=== PATIENT | female | born 1965 | race Caucasian/White ===

== ENCOUNTER 2025-07-16 07:17 | Day surgery (SDC) | payer MEDICARE, MEDICAID ==
[2025-07-14 10:24] LABS: MEAN PLATELET VOLUME 8.6 FL (7.4-10.4); RED CELL DISTRIBUTION WIDTH 13.6 % (11.5-14.5)
[2025-07-14 10:41] LABS: APTT 24 SECONDS (22-32); INR 1.0 INR
[2025-07-14 10:45] LABS: CHOL/HDL RATIO 2.3 (0.00-4.99); CREATININE 0.64 MG/DL (0.40-0.90); LDL CHOLESTEROL 62 MG/DL (50-100); TOTAL CARBON DIOXIDE 32.8 MMOL/L (24-32); eGFR > 90 ML/MIN
[2025-07-16] VITALS (9 sets, daily range): BP systolic 133–144; BP diastolic 51–64; PULSE 39–44; RESP 16; TEMP 97.4; O2SAT 96–99
[~2025-07-16] VITALS: Ht 162.6 cm; Wt 109.0 kg
[~2025-07-16 07:17] MED LIST: ASPI-1674 PO; ATOR-2 PO; BUPR150T8 PO; FLUT12AE4 INH; HYDR-3686 PO; LISI1TAB49 PO; MELO-100 PO; METO-395 PO; NICO-687 TOP; SERT-433 PO
--- NOTE | 2025-07-16 07:43 | ELECTROCARDIOGRAPH REPORT ---
[facility] Test Date: 2025-07-16 Test Time: 07:40:45 Pat Name: BECKIE LEAHY Department: [facility] Patient ID: [id number] Room: Gender: F Nicu Rn: mack : 1965 Requested By: JOHNNY ZAMORA Order Number: [id number] Reading MD: Dr. YESICA Turner Measurements Intervals [place] Rate: 42 P: -2 VA: 130 QRS: 7 QRSD: 111 T: 72 QT: 454 QTc: 380 Interpretive Statements Sinus bradycardia Incomplete left bundle branch block Electronically Signed On 07-16-2025 16:35:[address] YESICA Turner Please click the below link to view image of tracing.
[2025-07-16] MEDS: potassium Cl 20 mEq SR tablet PO STA (08:18)
[2025-07-16] MEDS ORDERED: midazolam 1 mg/ML 2ml injection ONE (09:29)
[2025-07-16] MEDS ORDERED: LIDOcaine 1% (10mg/ml) 2ml vial ONE (09:29)
[2025-07-16] MEDS ORDERED: verapamil 2.5 mg/ml inj IV ONE (09:29)
[2025-07-16] MEDS ORDERED: heparin 1,000unit/ml 10ml vial 10 ML ONE (09:29)
[2025-07-16] MEDS ORDERED: fentaNYL/PF 50MCG/1 ML 2ML syringe ONE (09:29)
[2025-07-16] MEDS ORDERED: nitroGLYCERIN 500mcg/5mL D5W 5 ML IV ONE (09:30)
[2025-07-16] MEDS ORDERED: ondansetron/PF 4mg/2ml inj IV PRN (11:05)
[2025-07-16] MEDS ORDERED: HYDROcodone/acetaminophen 10/325mg tab PO PRN (11:10)
[2025-07-16] MEDS ORDERED: HYDROcodone/acetaminophen 5mg/325mg tablet PO PRN (11:10)
--- NOTE | 2025-07-24 11:50 | CARDIOLOGY REPORT ---
DATE OF SERVICE: 07/16/2025 DICTATING PHYSICIAN: Abhishek Montanez MD CARDIAC CATHETERIZATION REPORT DATE OF STUDY: 07/16/2025. PROCEDURES: * Left heart catheterization * Selective coronary angiography * Left ventriculography * Conscious sedation monitoring time for 15 minutes INDICATION: Continued chest pain. PHYSICIAN: Abhishek Montanez MD PROCEDURE: After informed consent was obtained, the patient was brought to the cardiac lab courier in a fasting state where the patient was prepped and draped in the usual sterile manner. After adequate anesthesia was obtained using 1% lidocaine to the right wrist, a 5-[place] sheath was inserted into the right radial artery using a modified Seldinger technique. Thereafter, using a cocktail of heparin, verapamil and nitroglycerin, the cocktail was given via the sheath in the radial artery to prevent coronary vasospasm and for anticoagulation. Next, using an Ultimate-2 catheter, the catheter was advanced under fluoroscopy guidance into the ascending aorta. The catheter was then manipulated to engage the left coronary system and coronary angiography of the left system was obtained. Next, the catheter was disengaged and manipulated to engage the right coronary artery and selective coronary angiography of the right coronary artery was obtained. Thereafter, the catheter was disengaged from the right coronary artery and manipulated to advance into the left ventricle where left ventriculography in the JOHNSON position was obtained. The catheter was then removed. Hemostasis was obtained using the radial band. HEMODYNAMICS: For the patient's hemodynamics, please refer to the event log. Left ventricular end-diastolic pressure was 15 mmHg. FINDINGS: All of the patient's coronary arteries are normal caliber vessels with mild luminal irregularities. No significant stenosis noted. Left ventriculography revealed the presence of normal left ventricular function. IMPRESSION: * Mild luminal irregularities with no significant coronary artery disease by angiography. * Normal left ventricular function. * Left ventricular end-diastolic pressure was 15 mmHg. Abhishek Montanez MD TID: [id number] RECEIPT: [id number] YONG/PARAS
== END 2025-07-16 13:30 | disposition home or self-care (01) ==
LOC: SSTAY O 07:17
PROVIDERS: ATTEND Student in an Organized Health Care Education/Training Program
DX: R07.9 Chest pain, unspecified (principal); I25.10 Atherosclerotic heart disease of native coronary artery without angina pectoris; I44.7 Left bundle-branch block, unspecified; I10 Essential (primary) hypertension; E78.00 Pure hypercholesterolemia, unspecified; J44.9 Chronic obstructive pulmonary disease, unspecified; G47.33 Obstructive sleep apnea (adult) (pediatric); F41.9 Anxiety disorder, unspecified; F32.A Depression, unspecified; F12.90 Cannabis use, unspecified, uncomplicated; Z79.82 Long term (current) use of aspirin; Z79.891 Long term (current) use of opiate analgesic; Z79.899 Other long term (current) drug therapy
CPT/HCPCS: 36415; 80048; 80061; 85025; 85610; 85730; 93005; 93458; 99152; A6258; A6402; C1894; J1644; J2003; J2250; J3010; J3490; J7030; Q0163; Q9967; Z7610; 99153

== ENCOUNTER 2025-08-01 09:34 | Emergency (ER) | payer MEDICARE, MEDICAID ==
[~2025-08-01] VITALS: Ht 162.6 cm; Wt 109.8 kg
[2025-08-01 09:42] VITALS: BP 188/74; PULSE 60; RESP 18; TEMP 97.7; O2SAT 96
[2025-08-01] MEDS ORDERED: AMOX-117 PO (10:07)
[2025-08-01] MEDS ORDERED: IBUP600T52 PO (10:07)
--- NOTE | 2025-08-01 10:07 | Physician Documentation ---
HPI ~ General Chief Complaint: Tooth Problem Stated Complaint: SWELLING IN FACE Time Seen by MD: 09:45 Source: patient Mode of Arrival: POV Exam Limitations: no limitations History of Present Illness HPI Comment 60-year-old with poor dentition has a dental appointment in 3 months for a tooth extraction but is having some swelling and pain to the left lower jaw. No fevers difficulty breathing or difficulty swallowing Medication Reconciliation Allergies: Coded Allergies: No Known Allergies (Unverified , 08/01/25) Scheduled Amox Tr/Potassium Clavulanate (Augmentin 875-125 Tablet), 1 TAB PO Q12H Aspirin (Aspirin), 1 PO DAILY, (Reported) Atorvastatin Calcium (Atorvastatin Calcium), 1 TAB PO DAILY, (Reported) Bupropion HCl (Wellbutrin Sr), 1 TAB PO Q12H, (Reported) Fluticasone/Salmeterol (Advair Hfa 115-21 Mcg Inhaler), 2 PUFFS INH Q12H, (Reported) Hydroxyzine Hcl* (Atarax*), 1 TAB PO DAILY, (Reported) Ibuprofen (Ibuprofen), 1 TAB PO Q8H Lisinopril/Hydrochlorothiazide (Lisinopril-Hctz 10-12.5 mg Tab), 1 TAB PO DAILY, (Reported) Meloxicam* (Meloxicam*), 1 TAB PO every other day , (Reported) Metoprolol Succinate (Metoprolol Succinate), 0.5 TAB PO DAILY, (Reported) Nicotine 21 MG Patch* (Habitrol 21 MG Patch*), 1 PATCH TOP DAILY, (Reported) Sertraline HCl (Sertraline HCl), 1 TAB PO DAILY, (Reported) Past Medical History Past Medical History: No Pertinent History Past Surgical History: noncontributory Lives with: Family Lives In: Home Occupation: disabled Review of Systems All Other Systems at this time: Reviewed and Negative ENT: Reports: see HPI Physical Exam Vital Signs: RN Vital Signs have been reviewed: Yes, Temperature: 97.7, Source: Temporal, Heart Rate: 60, Respiratory Rate: 18, BP: 188/74, Pulse Oximetry: 96, Weight: 109.800 Oxygen Flow Rate: 0 Physical Exam General: Alert, no apparent distress. HEENT: moist mucous membranes. No adenopathy no facial swelling small hard lump to the lower jaw on the left side. No trismus no obvious fluctuance patient Neck: Full range of motion. Respiratory: No respiratory distress speaking in full sentences Chest: No accessory muscle use. Cardiovascular: Appears well perfused Neurologic: Oriented x4. Psychiatric: Normal mood and affect. Skin: Normal color, warm and dry. No edema, no ecchymosis. Progress Results/Orders Results/Orders Vital Signs 08/01/25 09:42 Temp 97.7 Pulse 60 Resp 18 B/P (MAP) 188/74 Pulse Ox 96 O2 Flow Rate 0 Medical Decision Making Additional information obtaine: N/A Findings Small firm lump to the left lower jaw. No obvious signs of Eddie's angina. Patient does have a dental appointment in 3 months. Antibiotics for dental abscess. Differential Dx:Considerations: Include: Facial Cellulitis, Periapical abscess, Peridontal abscess, Pulpitis, Tooth avulsion, Tooth eruption, Other Departure Time of Disposition: 10:04 Impression: Primary Impression: Dental abscess Condition: Stable Discharge Instructions: Dental Pain Additional Instructions: Antibiotics as prescribed and maintain appointment with dental for any new or worsening symptoms feel free to return to the ER Referrals: NO PRIMARY CARE PROVIDER (PCP) Prescriptions Ibuprofen (Ibuprofen) 600 Mg Tablet 1 TAB PO Q8H for pain for 10 Days, #30 TAB 0 Refills with food Prov: DONNA BUTLER NP 08/01/25 Amox Tr/Potassium Clavulanate (Augmentin 875-125 Tablet) 1 Each Tablet 1 TAB PO Q12H for 10 Days, #20 TAB Prov: DONNA BUTLER NP 08/01/25 Education Educated: Patient Educated regarding: diagnosis, treatment, need for follow up Signature Scribe Signature: No scribe Attestation: The note accurately reflects work and decisions made by me.Donna Butler - ANDRE 08/01/25 10:07 DONNA BUTLER NP Aug 01, 2025 10:07
== END 2025-08-01 10:51 | disposition home or self-care (01) ==
LOC: ER 09:34
DX: K04.7 Periapical abscess without sinus (principal); Z79.82 Long term (current) use of aspirin; Z79.899 Other long term (current) drug therapy
CPT/HCPCS: 99283